=== PATIENT | female | born 1970 | race Caucasian/White ===

== ENCOUNTER 2018-07-14 12:05 | Emergency (ER) | payer OTHER ==
[~2018-07-14] VITALS: Ht 160 cm; Wt 127.0 kg
[~2018-07-14 12:05] MED LIST: ULTRAM 50MG TAB50 MG PO
[2018-07-14 12:06] VITALS: BP 144/87
[2018-07-14] MEDS ORDERED: XANAX2 MG PO (12:08)
== END 2018-07-14 13:54 | disposition left against medical advice (07) ==
LOC: ER 12:05
DX: M79.662 Pain in left lower leg (principal); Z88.1 Allergy status to other antibiotic agents; Z88.5 Allergy status to narcotic agent; Z88.8 Allergy status to other drugs, medicaments and biological substances